=== PATIENT | male | born 1985 | race Caucasian/White ===

== ENCOUNTER → 2017-11-06 | Outpatient (CLI) | payer BC ==
--- NOTE | 2017-11-06 13:14 | US ---
EXAMINATION TYPE: US venous doppler duplex LE RT DATE OF EXAM: 11/06/2017 12:57 PM COMPARISON: NONE CLINICAL HISTORY: L03.115 CELLULITIS OF R LOWER LIMB. SIDE PERFORMED: Right TECHNIQUE: The lower extremity deep venous system is examined utilizing real time linear array sonog cristino with graded compression, doppler sonography and color-flow sonography. VESSELS IMAGED: External Iliac Vein (EIV) Common Femoral Vein Deep Femoral Vein Greater Saphenous Vein * Femoral Vein Popliteal Vein Small Saphenous Vein * Proximal Calf Veins (* superficial vessels) Morbidly obese patient. Right Leg: Negative for DVT Grayscale, color doppler, spectral doppler imaging performed of the deep veins of the lower extremiti es. There is normal flow, compressibility, vascular waveforms. IMPRESSION: No sonographic evidence of deep venous thrombosis within the right lower extremity.
== END | disposition home or self-care (01) ==
LOC: RADUSWWP 12:05
PROVIDERS: ATTEND Family Medicine
DX: L03.115 Cellulitis of right lower limb (principal)

== ENCOUNTER → 2020-05-07 | Outpatient (CLI) | payer BC ==
--- NOTE | 2020-05-07 18:01 | P.HPBAR ---
Bariatric H&P - History & Physicial H&P Date: 05/07/20 History & Physicial: Visit/CC: Initial Visit Patient initial contact: Initial weight: 188.468 kg Initial weight in pounds: 415.50 Height: 6 ft 4 in Initial BMI: 50.5 Last weight: Current weight: 188.468 kg Current weight in pounds: 415.50 Current BMI: 50.5 [place] body weight (based on NIH guidelines): 91.626 kg Excess body weight loss: 0.0% The patient is a 35 year-old M who presents for Bariatric Assessment. Patient seen today in the bariatric clinic as a new bariatric patient. Patient is interested in sleeve gastrectomy. Patient suffers from diabetes, hypertension, GERD, sleep apnea. Patient does not use a CPAP machine. BMI 50.5. Denies tobacco use. No history of DVT or dysphagia. No abdominal surgeries. Review of Systems The patient denies any acute changes in vision or hearing, no dysphagia or odynophagia, no chest pain or shortness of breath, no dysuria or hematuria, no headache, no runny nose, no rectal bleeding or melena, no unexplained weight loss Past Medical History Past Medical History: Diabetes Mellitus, Hypertension History of Any Multi-Drug Resistant Organisms: None Reported Past Surgical History: Orthopedic Surgery Additional Past Surgical History / Comment(s): right leg fracture pins and plate Past Anesthesia/Blood Transfusion Reactions: No Reported Reaction Past Psychological History: No Psychological Hx Reported Smoking Status: Former smoker Past Alcohol Use History: None Reported Additional Past Alcohol Use History / Comment(s): quit 2015 Past Drug Use History: None Reported Surgical - Exam Vital Signs Temp Pulse Resp BP 98.9 F 103 H 16 153/83 05/07/20 14:25 05/07/20 14:25 05/07/20 14:25 05/07/20 14:25 Physical exam: General: Well-developed, well-nourished HEENT: Normocephalic, sclerae nonicteric Abdomen: Nontender, nondistended Extremities: No edema Neuro: Alert and oriented Bariatric Assessment & Plan (1) Morbid obesity with BMI of 50.0-59.9, adult Narrative/Plan: Both surgical and nonoperative weight loss methods discussed with the patient. Risks and benefits of both gastric bypass and sleeve gastrectomy discussed in detail as well. Patient remains interested in sleeve gastrectomy at this time. Patient and I did discuss the increased expected weight loss with bypass over sleeve gastrectomy. He will continue to consider his options. We'll proceed with upper endoscopy in the near future. Will plan follow-up back in the bariatric center after upper endoscopy performed. Status: Acute Bariatric Checklist Checklist: Plan: Checklist: EGD: 1. Hiatal hernia: 2. H. Pylori: HgbA1c: Vitamin D: Smoking: Former smoker Primary care physician referral: [facility] Psychiatry clearance: Cardiology clearance: Sleep study: Diet journal: VTE risk score: VTE risk level: Rehab needs at discharge:
[2020-05-08 10:15] VITALS: BP 153/83; PULSE 103; RESP 16; TEMP 98.9; BMI 50.5
== END | disposition home or self-care (01) ==
LOC: BARWHC3 13:58
PROVIDERS: ATTEND Surgery
DX: E66.01 Morbid (severe) obesity due to excess calories (principal); Z68.43 Body mass index [BMI] 50.0-59.9, adult; Z87.891 Personal history of nicotine dependence
CPT/HCPCS: 99211

== ENCOUNTER → 2020-06-01 | Outpatient (CLI) | payer BC ==
[2020-06-01 11:34] VITALS: BMI 50.1
== END | disposition home or self-care (01) ==
LOC: BARWHC3 09:14
PROVIDERS: ATTEND Surgery
DX: E66.01 Morbid (severe) obesity due to excess calories (principal); Z68.41 Body mass index [BMI] 40.0-44.9, adult; Z71.3 Dietary counseling and surveillance
CPT/HCPCS: 97804

== ENCOUNTER → 2020-06-02 | Day surgery (SDC) | payer BC ==
[2020-05-29 10:36] VITALS: BMI 51.7
[~2020-06-02] MED LIST: GLYCOPYRROLATE 0.2 MG/ML 2 ML VIAL ONE; KETAMINE 10 MG/ML 20 ML VIAL ONE; LACTATED RINGERS 1,000 ML IV SCH; LIDOCAINE 1% (10MG/ML) FOR IV START INTRADERMA ONE; LIDOCAINE 1% INJ 10MG/ML (20 ML MDV) ONE; PROPOFOL 10 MG/ML 20 ML VIAL IV ONE
[2020-06-02 08:05] VITALS: RESP 20; TEMP 97.4
[2020-06-02 08:28] LABS: Glucose,Whole Blood 207 mg/dL (75-99)
--- NOTE | 2020-06-02 08:36 | P.GSHP ---
History of Present Illness H&P Date: 06/02/20 Chief Complaint: GERD Patient here today for upper endoscopy. Patient is interested in sleeve gastrectomy. Patient with history of diabetes, hypertension, sleep apnea, GERD symptoms. No dysphagia. Past Medical History Past Medical History: Diabetes Mellitus, Hypertension Additional Past Medical History / Comment(s): ASTHMA (CHILD), SEVERE SLEEP APNEA (NO MACHINE), PSORIASIS. History of Any Multi-Drug Resistant Organisms: None Reported Past Surgical History: Orthopedic Surgery Additional Past Surgical History / Comment(s): right leg fracture pins and plate, Knee Arthroscopy Past Anesthesia/Blood Transfusion Reactions: No Reported Reaction Past Psychological History: No Psychological Hx Reported Smoking Status: Former smoker Past Alcohol Use History: Occasional Additional Past Alcohol Use History / Comment(s): smoked for 1/2 to 1 year- quit 8-10 years ago. Past Drug Use History: None Reported - Past Family History Mother Family Medical History: No Reported History Medications and Allergies Home Medications Medication Instructions Recorded Confirmed Type lisinopriL [Zestril] 10 mg PO DAILY 05/07/20 06/02/20 History metFORMIN HCL [Glucophage] 1,000 mg PO DAILY 05/07/20 06/02/20 History Allergies Allergy/AdvReac Type Severity Reaction Status Date / Time No Known Allergies Allergy Verified 05/29/20 10:19 Surgical - Exam Vital Signs Temp Pulse Resp BP Pulse Ox 97.4 F L 80 20 138/65 94 L 06/02/20 08:02 06/02/20 08:02 06/02/20 08:02 06/02/20 08:02 06/02/20 08:02 Physical exam: General: Well-developed, well-nourished HEENT: Normocephalic, sclerae nonicteric Abdomen: Nontender, nondistended Extremities: No edema Neuro: Alert and oriented Results - Labs Abnormal Lab Results - Last 24 Hours (Table) 06/02/20 Range/Units 08:22 POC Glucose (mg/dL) 207 H (75-99) mg/dL Assessment and Plan (1) GERD (gastroesophageal reflux disease) Narrative/Plan: Will proceed with upper endoscopy at this time. Current Visit: Yes Status: Acute Code(s): K21.9 - GASTRO-ESOPHAGEAL REFLUX DISEASE WITHOUT ESOPHAGITIS SNOMED Code(s): 862635132
--- NOTE | 2020-06-02 08:53 | P.PCN ---
Date of Procedure: 06/02/20 Procedure(s) Performed: Preoperative Dx: GERD, presurgical Postoperative Dx: Mild gastritis Procedure: EGD with Bx Anesthesia: Sedation Endoscopist: Dr. Ceron Specimens: Antrum Endoscopic Procedure: The patient was on the endoscopy table in the left decubitus position. The Olympus gastroscope was inserted into the oropharynx and passed under direct visualization to the region of the third portion of the duodenum. From that point the scope was slowly withdrawn inspecting all surfaces carefully. There were no neoplastic inflammatory or polypoid lesions throughout the duodenum. The pylorus was widely patent. The stomach was carefully inspected. There was mild gastritis present. A biopsy of the antrum took place to rule out H. pylori. Retroflexion revealed a normal hiatus. The esophagus was then carefully examined. There were no neoplastic inflammatory or polypoid lesions throughout the visualized esophagus. The patient was then taken to the recovery room in stable condition per anesthesia guidelines. Recommendations: Await biopsy results. Follow-up bariatric clinic.
[2020-06-02 09:22] VITALS: BP 138/85; PULSE 72
[2020-06-02 09:41] LABS: HCT 46.9 % (39.0-53.0); HGB 15.6 gm/dL (13.0-17.5); MCHC 33.1 g/dL (31.0-37.0); MCV 87.6 fL (80.0-100.0); Mean Platelet Volume 8.5; Platelet Count 202 k/uL (150-450); RBC 5.35 m/uL (4.30-5.90); RDW 12.7 % (11.5-15.5); WBC 6.1 k/uL (3.8-10.6)
[2020-06-02 16:59] LABS: Hemoglobin A1C 8.7 % (4.0-6.0)
[2020-06-02 17:03] LABS: African American GFR (CKD) 142.7 (60.0-200.0); Albumin 4.1 g/dL (3.80-4.90); Albumin/Globulin Ratio 1.64 (1.60-3.17); Anion Gap 9.5 mmol/L (4.00-12.00); BUN/Creat Ratio 18.57 Ratio (12.00-20.00); Calcium 9.1 mg/dL (8.7-10.3); Carbon Dioxide 26.5 mmol/L (21.6-31.8); Globulin 2.5 g/dL (1.6-3.3); Non-African American GFR(CKD) 123.1 (60.0-200.0); Potassium 4.4 mmol/L (3.5-5.5); Total Bilirubin 0.6 mg/dL (0.2-1.2); Total Protein 6.6 g/dL (6.2-8.2)
[2020-06-02 17:14] LABS: Folate, Serum 17.4 ng/mL
== END ==
LOC: ORWHC2ENDO 07:38
PROVIDERS: ATTEND Surgery
DX: K29.50 Unspecified chronic gastritis without bleeding (principal); K21.9 Gastro-esophageal reflux disease without esophagitis; I10 Essential (primary) hypertension; J45.909 Unspecified asthma, uncomplicated; E11.9 Type 2 diabetes mellitus without complications; L40.9 Psoriasis, unspecified; G47.33 Obstructive sleep apnea (adult) (pediatric); E66.01 Morbid (severe) obesity due to excess calories; Z79.84 Long term (current) use of oral hypoglycemic drugs; Z79.899 Other long term (current) drug therapy; Z98.890 Other specified postprocedural states; Z87.891 Personal history of nicotine dependence; Z68.43 Body mass index [BMI] 50.0-59.9, adult
CPT/HCPCS: 88305; 43239; J2001; J2704

== ENCOUNTER → 2020-06-09 | Outpatient (CLI) | payer BC ==
[2020-06-09 13:57] VITALS: BP 142/75; PULSE 97; RESP 16; TEMP 98.3; BMI 50.1
--- NOTE | 2020-06-09 14:57 | P.BASOAP ---
Subjective Progress Note Date: 06/09/20 Principal diagnosis: Morbid obesity 35-year-old male known to our bariatric clinic. He underwent EGD 06/02. Found to have mild gastritis at that time. Patient with history of diabetes, hypertension, GERD, sleep apnea. Remains interested in sleeve gastrectomy. No other changes to his history and physical since his first encounter. Objective - Vital Signs Vital signs: Vital Signs Temp 98.3 F 06/09/20 13:54 Pulse 97 06/09/20 13:54 Resp 16 06/09/20 13:54 BP 142/75 06/09/20 13:54 Pulse Ox Intake & Output 06/08/20 06/09/20 06/09/20 18:59 06:59 18:59 Weight 186.88 kg - Exam Abdomen: Soft, nontender, nondistended Assessment/Plan (1) Morbid obesity with BMI of 50.0-59.9, adult Narrative/Plan: Options again discussed with the patient. Remains interested in sleeve gastrectomy. We'll schedule for sleeve gastrectomy in the next 1-2 months. The surgical consent form was discussed in detail. The risks of bleeding, infection, stenosis, stricture, leak, abscess, fistula formation, peritonitis, poor weight loss, reflux, vomiting, conversion to an open procedure, aborting sleeve gastrectomy, [place], PE, DVT, and were discussed. The patient understands and wishes to proceed. Plan: Date: 06/09/20 Initial Weight: 188.468 kg Initial BMI: 50.5 Current Weight: 186.88 kg Current BMI: 50.1 Type of Surgery: Total Volume in Band: Previous Volume: Volume Removed: Volume Added: Band Size:
== END | disposition home or self-care (01) ==
LOC: BARWHC3 13:46
PROVIDERS: ATTEND Surgery
DX: E66.01 Morbid (severe) obesity due to excess calories (principal); Z68.43 Body mass index [BMI] 50.0-59.9, adult
CPT/HCPCS: 99211

== ENCOUNTER 2020-07-03 08:34 | Inpatient (IN) | payer BC ==
[~2020-07-03 08:34] MED LIST changes: -GLYCOPYRROLATE 0.2 MG/ML 2 ML VIAL ONE; -KETAMINE 10 MG/ML 20 ML VIAL ONE; -LACTATED RINGERS 1,000 ML IV SCH; -LIDOCAINE 1% (10MG/ML) FOR IV START INTRADERMA ONE; +LIDOCAINE 1% (10MG/ML) FOR IV START INTRADERMA PRN; -LIDOCAINE 1% INJ 10MG/ML (20 ML MDV) ONE; +MIDAZOLAM 2 MG/2 ML VIAL IV PRN; -PROPOFOL 10 MG/ML 20 ML VIAL IV ONE; +ceFAZolin 3 GM in SODIUM CHLORIDE 0.9% 100 ML IVPB ONE; +fentaNYL (PF) 50 MCG/ML 2 ML AMP IVP PRN
[2020-07-03] MEDS: LACTATED RINGERS 1,000 ML IV SCH (11:47)
[2020-07-03] MEDS: ONDANSETRON 4 MG/2 ML VIAL IVP ONE ×2 (11:48→17:26)
[2020-07-03] MEDS: DEXAMETHASONE SOD PHOSPHATE 10 MG/ML 1 ML VIAL IV ONE ×2 (11:48→17:26)
[2020-07-03 11:49] LABS: Glucose,Whole Blood 106 mg/dL (75-99)
[2020-07-03] MEDS ORDERED: PANTOPRAZOLE 40 MG/10 ML VIAL IV STA (12:10)
[2020-07-03] MEDS ORDERED: ENOXAPARIN 40 MG/0.4 ML SYRINGE SQ STA (12:10)
[2020-07-03] MEDS ORDERED: CHLORHEXIDINE GLUCONATE 15 ML CUP MUCOUS MEM ONE (12:10)
--- NOTE | 2020-07-03 12:13 | P.GSHP ---
History of Present Illness H&P Date: 07/03/20 Chief Complaint: Morbid obesity 35-year-old male first seen in the office in April. The patient has complaints of morbid obesity. States he has tried a variety of different weight loss methods over the years without success. Patient several from diabetes, hypertension, GERD, sleep apnea. He does not use his CPAP machine. No history of DVT or dysphagia in the past. Patient has been and remains interested in sleeve gastrectomy. Recent EGD showed mild gastritis. Past Medical History Past Medical History: Diabetes Mellitus, GERD/Reflux, Hypertension, Pneumonia, Skin Disorder, Sleep Apnea/CPAP/BIPAP Additional Past Medical History / Comment(s): ASTHMA (CHILD), SEVERE SLEEP APNEA (NO MACHINE), PSORIASIS. History of Any Multi-Drug Resistant Organisms: None Reported Past Surgical History: Orthopedic Surgery Additional Past Surgical History / Comment(s): right leg fx with screws,pins and plate, left knee arthreoscopy Past Anesthesia/Blood Transfusion Reactions: No Reported Reaction Smoking Status: Former smoker - Past Family History Mother Family Medical History: No Reported History Medications and Allergies Home Medications Medication Instructions Recorded Confirmed Type lisinopriL [Zestril] 10 mg PO DAILY 05/07/20 07/03/20 History metFORMIN HCL [Glucophage] 1,000 mg PO DAILY 05/07/20 07/03/20 History Allergies Allergy/AdvReac Type Severity Reaction Status Date / Time No Known Allergies Allergy Verified 07/03/20 11:31 Surgical - Exam Vital Signs Temp Pulse Resp BP Pulse Ox 98.3 F 76 20 143/76 94 L 07/03/20 11:36 07/03/20 11:36 07/03/20 11:36 07/03/20 11:36 07/03/20 11:36 Physical exam: General: Well-developed, well-nourished HEENT: Normocephalic, sclerae nonicteric Abdomen: Nontender, nondistended Extremities: No edema Neuro: Alert and oriented Results - Labs Abnormal Lab Results - Last 24 Hours (Table) 07/03/20 Range/Units 11:42 POC Glucose (mg/dL) 106 H (75-99) mg/dL Assessment and Plan (1) Morbid obesity with BMI of 50.0-59.9, adult Narrative/Plan: Will proceed with laparoscopic sleeve gastrectomy at this time. The risks of bleeding, infection, stenosis, stricture, leak, abscess, fistula formation, peritonitis, poor weight loss, reflux, vomiting, conversion to an open procedure, aborting sleeve gastrectomy, [place], PE, DVT, and were discussed. The patient understands and wishes to proceed. Current Visit: No Status: Acute Code(s): E66.01 - MORBID (SEVERE) OBESITY DUE TO EXCESS CALORIES; Z68.43 - BODY MASS INDEX (BMI) 50.0-59.9, ADULT SNOMED Code(s): 364929195
[2020-07-03] MEDS ORDERED: ONDANSETRON 4 MG/2 ML VIAL ONE (14:00)
[2020-07-03] MEDS ORDERED: fentaNYL (PF) 50 MCG/ML 2 ML AMP ONE (14:00)
[2020-07-03] MEDS ORDERED: LIDOCAINE 1% INJ 10MG/ML (20 ML MDV) ONE (14:00)
[2020-07-03] MEDS ORDERED: NEOSTIGMINE 1 MG/ML 10 ML VIAL ONE (14:00)
[2020-07-03] MEDS ORDERED: MIDAZOLAM 2 MG/2 ML VIAL ONE (14:00)
[2020-07-03] MEDS ORDERED: ROCURONIUM BROMIDE 10 MG/ML 5 ML VIAL IV ONE (14:00)
[2020-07-03] MEDS ORDERED: SUCCINYLCHOLINE CHLORIDE VIAL 200 MG/10 ML VIAL IV ONE (14:00)
[2020-07-03] MEDS ORDERED: PROPOFOL 10 MG/ML 20 ML VIAL IV ONE (14:00)
[2020-07-03] MEDS ORDERED: GLYCOPYRROLATE 0.2 MG/ML 2 ML VIAL ONE (14:00)
[2020-07-03] MEDS ORDERED: BUPIVACAINE (PF) 0.25% 30 ML VIAL SQ ONE ×2 (14:32→14:38)
[2020-07-03] MEDS ORDERED: LACTATED RINGERS 1,000 ML IV ONE ×2 (14:38→17:03)
[2020-07-03] MEDS ORDERED: diphenhydrAMINE 50 MG/ML 1 ML VIAL IVP PRN (16:00)
[2020-07-03] MEDS ORDERED: HYOSCYAMINE ORAL DROPS 1.875 MG/15 ML BOTTLE PO PRN (16:00)
[2020-07-03] MEDS ORDERED: NALOXONE 0.4 MG/ML 1 ML VIAL IV PRN (16:00)
[2020-07-03] MEDS ORDERED: ONDANSETRON 4 MG/2 ML VIAL IVP PRN (16:00)
--- NOTE | 2020-07-03 16:08 | P.OP ---
Date of Procedure: 07/03/20 Procedure(s) Performed: PREOPERATIVE DIAGNOSIS: Morbid obesity, GERD, hypertension, sleep apnea, diabetes POSTOPERATIVE DIAGNOSIS: Same PROCEDURE: Laparoscopic sleeve gastrectomy SURGEON: Osmany EBL: Minimal ANESTHESIA: General COMPLICATIONS: None OPERATIVE PROCEDURE: Patient was placed in the operating table in the supine position. She was placed under general anesthesia at that time. The abdomen was prepped and draped in sterile fashion after the patient was placed in lithotomy. A 5 mm optical trocar was used to enter the abdominal cavity in the left upper quadrant. Insufflation took place to 15 millimeters mercury. An additional right subxiphoid 5 mm trocar was then placed under direct visua lization and then removed. 2 additional 5 mm trochars were placed in the right upper quadrant and left upper quadrant under direct visualization and a 15 mm trocar in the supraumbilical location. The liver was retracted using a medium Vanda liver retractor through the right subxiphoid trocar site. The hiatus was inspected. The patient had no visible hiatal hernia At that point I moved to the mid aspect of the greater curvature the stomach. The short gastric vasculature was divided using a LigaSure device proximally. I then switched and divided the short gastrics distally to a 3-4 cm from the pylorus. The dissection took place up to the left diaphragmatic crura at that point. The posterior short gastrics were likewise divided using the LigaSure device. Once the stomach was fully mobilized the blunt tipped 40-Tunisian bougie dilator was advanced into the stomach and advanced all the way to the prepyloric location. A black echelon 60 stapler with seen guard was utilized and fired tangentially across the antrum taking care to avoid narrowing at the incisura angularis. A second black echelon stapler with seam guard was then utilized. Subsequent firings of the stapler took place. A total of 4 green echelon 60 staplers with seam guard took place proximally staying on the outer edge of our dilator. Once we reached the most proximal portion of the stomach a single firing of the gold echelon 60 stapler without seen guard took place. The oral gastric tube was reinserted. The stomach was insufflated with approximately 100 mL of methylene blue. No evidence of leak or obstruction was seen. The distal aspect of the sleeve was then reapproximated to the gastrosplenic and gastrocolic ligament using a short running 2-0 strata fix suture. This was done to prevent kinking or twisting of the sleeve. Tisseel fibrin glue was used along the length of the staple line at that time. The stomach remnant was removed from the 15 mm trocar site without difficulty. The fascia at the 15 more site was closed using interrupted 0 Vicryl sutures with the laparoscopic suture passer and Francisco Javier Maegan technique. The insufflation was evacuated. The skin at all 5 incisions were closed using 4-0 Monocryl sutures. Skin glue was then applied. DISPOSITION: Stable to recovery room
[2020-07-03] MEDS: HYDROmorphone 0.5 MG/0.5 ML SYRINGE IVP PRN ×4 (16:24→17:05)
[2020-07-03] MEDS: ALBUTEROL NEBULIZED 2.5 MG/3 ML INHALATION SCH ×2 (16:27→19:20)
[2020-07-03] MEDS: ACETAMINOPHEN IV (For NPO) 1,000 MG in EMPTY BAG 1 BAG IVPB ONE ×2 (17:05→17:25)
[2020-07-03 17:10] LABS: Glucose,Whole Blood 133 mg/dL (75-99)
[2020-07-03] MEDS: 0.9% NACL WITH KCL 20 MEQ/L 1,000 ML IV SCH (19:45)
[2020-07-03] MEDS: HYDROmorphone 1 MG/ML 1 ML SYRINGE IVP PRN (20:30)
[2020-07-03] MEDS: SIMETHICONE 40 MG/0.6 ML DROPS 2,000 MG/30 ML BOTTLE PO PRN (20:44)
[2020-07-04] MEDS: HYDROmorphone 1 MG/ML 1 ML SYRINGE IVP PRN ×5 (01:31→21:40)
[2020-07-04] MEDS: 0.9% NACL WITH KCL 20 MEQ/L 1,000 ML IV SCH ×2 (01:34→05:25)
[2020-07-04] MEDS ORDERED: METOCLOPRAMIDE 5 MG/ML 2 ML VIAL IVP PRN (01:38)
[2020-07-04] MEDS ORDERED: ONDANSETRON 4 MG/2 ML VIAL IVP PRN (01:38)
[2020-07-04] MEDS: LACTATED RINGERS 1,000 ML IV SCH (05:25)
[2020-07-04 07:27] LABS: Basophils % (A) 0 %; Eosinophils % (A) 0 %; HCT 46.3 % (39.0-53.0); HGB 15.3 gm/dL (13.0-17.5); Lymphocytes # (A) 1.6 k/uL (1.0-4.8); Lymphocytes % (A) 15 %; MCH 29.1 pg (25.0-35.0); MCHC 33.1 g/dL (31.0-37.0); MCV 88.1 fL (80.0-100.0); Mean Platelet Volume 8.3; Monocytes # (A) 0.6 k/uL (0-1.0); Monocytes % (A) 6 %; Neutrophils # (A) 8.5 k/uL (1.3-7.7); Neutrophils % (A) 78 %; Platelet Count 208 k/uL (150-450); RBC 5.26 m/uL (4.30-5.90)
[2020-07-04 07:29] LABS: Glucose,Whole Blood 120 mg/dL (75-99)
[2020-07-04] MEDS: PANTOPRAZOLE 40 MG/10 ML VIAL IV SCH (07:34)
[2020-07-04] MEDS: ENOXAPARIN 40 MG/0.4 ML SYRINGE SQ SCH ×2 (07:34→21:42)
[2020-07-04 07:41] LABS: African American GFR (CKD) >90 (>60 ml/min/1.73 sqM); Anion Gap 8 mmol/L; Blood Urea Nitrogen 8 mg/dL (9-20); Calcium 8.7 mg/dL (8.4-10.2); Carbon Dioxide 28 mmol/L (22-30); Chloride 101 mmol/L (98-107); Magnesium 1.9 mg/dL (1.6-2.3); Non-African American GFR(CKD) >90 (>60 ml/min/1.73 sqM); Phosphorus 3.9 mg/dL (2.5-4.5); Potassium 4.1 mmol/L (3.5-5.1); Sodium 137 mmol/L (137-145)
[2020-07-04] MEDS: 1: MVI, ADULT NO.4 WITH VIT K 10 ML, THIAMINE 100 MG, FOLIC ACID 1 MG, POTASSIUM CHLORID IV SCH ×12 (08:36→14:52)
--- NOTE | 2020-07-04 08:40 | FL ---
SINGLE CONTRAST UPPER GI EXAMINATION: CLINICAL HISTORY: 35-year-old male postop bariatric surgery, sleeve gastrectomy. TECHNIQUE: Single contrast exam performed with 50 ml Isovue-370 contrast. Total fluoroscopy time: 51 seconds. Total images: 21. FINDINGS: The patient swallowed oral contrast without difficulty or delay. Esophageal peristalsis and motility are within normal limits. There is prompt passage of contrast from esophagus into the stomach. There is postoperative changes of sleeve gastrectomy with satisfactory passage across this lesion and subs equently, into the duodenum. Normal positioning of the surgerized stomach. There is no evidence of co ntrast extravasation to suggest leak. No postoperative free air. IMPRESSION: No evidence of leak or obstruction status post sleeve gastrectomy.
[2020-07-04] MEDS: ALBUTEROL NEBULIZED 2.5 MG/3 ML INHALATION SCH ×4 (08:52→21:02)
--- NOTE | 2020-07-04 09:37 | P.PN ---
Subjective Progress Note Date: 07/04/20 Principal diagnosis: Morbid obesity Patient doing well today. Mild nausea. Pain is well-controlled. Upper GI shows no evidence of leak or obstruction. White blood cell count 11, hemoglobin 15.3. Objective - Vital Signs Vital signs: Vital Signs Temp 98.2 F 07/04/20 07:09 Pulse 64 07/04/20 09:04 Resp 18 07/04/20 07:09 BP 159/98 07/04/20 07:09 Pulse Ox 95 07/04/20 07:09 Intake & Output 07/03/20 07/04/20 07/04/20 18:59 06:59 18:59 Intake Total 2150 Output Total 10 725 Balance 2140 -725 Weight 178.6 kg Intake: IV 2150 Output: Urine 725 Estimated Blood Loss 10 Other: # Voids 1 - Exam Abdomen: Soft, nondistended, mild tenderness, incisions clean and dry - Labs CBC & Chem 7: 07/04/20 07:11 07/04/20 07:11 Labs: Abnormal Lab Results - Last 24 Hours (Table) 07/03/20 07/03/20 07/04/20 Range/Units 11:42 17:05 07:08 WBC (3.8-10.6) k/uL Neutrophils # (1.3-7.7) k/uL BUN (9-20) mg/dL POC Glucose (mg/dL) 106 H 133 H 120 H (75-99) mg/dL 07/04/20 07/04/20 Range/Units 07:11 07:11 WBC 11.0 H (3.8-10.6) k/uL Neutrophils # 8.5 H (1.3-7.7) k/uL BUN 8 L (9-20) mg/dL POC Glucose (mg/dL) (75-99) mg/dL Assessment and Plan (1) Morbid obesity with BMI of 50.0-59.9, adult Narrative/Plan: Patient doing well at this time. Increase activity. Begin liquid diet. May shower. Current Visit: No Status: Acute Code(s): E66.01 - MORBID (SEVERE) OBESITY DUE TO EXCESS CALORIES; Z68.43 - BODY MASS INDEX (BMI) 50.0-59.9, ADULT SNOMED Code(s): 421844393
[2020-07-04 11:38] LABS: Glucose,Whole Blood 133 mg/dL (75-99)
[2020-07-04 12:01] VITALS: BMI 47.9
[2020-07-04] MEDS ORDERED: hydrALAZINE HCL 20 MG/ML 1 ML VIAL IM PRN (12:01)
[2020-07-04] MEDS ORDERED: hydrALAZINE HCL 20 MG/ML 1 ML VIAL IVP PRN (12:24)
[2020-07-04] MEDS: KETOROLAC 15 MG/ML 1 ML VIAL IVP SCH ×2 (12:28→18:12)
[2020-07-04] MEDS: INSULIN ASPART (NovoLOG) 100 UNIT/ML VIAL SQ SCH ×3 (12:56→21:51)
[2020-07-04 17:04] LABS: Glucose,Whole Blood 113 mg/dL (75-99)
[2020-07-04 20:28] LABS: Glucose,Whole Blood 105 mg/dL (75-99)
[2020-07-04] MEDS: SIMETHICONE 40 MG/0.6 ML DROPS 2,000 MG/30 ML BOTTLE PO PRN (21:42)
[2020-07-05] MEDS: KETOROLAC 15 MG/ML 1 ML VIAL IVP SCH ×3 (00:13→11:44)
[2020-07-05] MEDS: 1: MVI, ADULT NO.4 WITH VIT K 10 ML, THIAMINE 100 MG, FOLIC ACID 1 MG, POTASSIUM CHLORID IV SCH ×6 (03:00)
[2020-07-05 07:14] LABS: Glucose,Whole Blood 83 mg/dL (75-99)
[2020-07-05] MEDS: ENOXAPARIN 40 MG/0.4 ML SYRINGE SQ SCH (07:31)
[2020-07-05] MEDS: INSULIN ASPART (NovoLOG) 100 UNIT/ML VIAL SQ SCH (07:31)
[2020-07-05] MEDS: PANTOPRAZOLE 40 MG/10 ML VIAL IV SCH (07:32)
[2020-07-05] MEDS: ALBUTEROL NEBULIZED 2.5 MG/3 ML INHALATION SCH ×2 (07:52→12:07)
[2020-07-05 07:59] LABS: Basophils % (A) 1 %; Eosinophils # (A) 0.2 k/uL (0-0.7); Eosinophils % (A) 3 %; HCT 41.6 % (39.0-53.0); HGB 13.6 gm/dL (13.0-17.5); Lymphocytes # (A) 1.9 k/uL (1.0-4.8); Lymphocytes % (A) 32 %; MCH 29.3 pg (25.0-35.0); MCHC 32.8 g/dL (31.0-37.0); MCV 89.2 fL (80.0-100.0); Mean Platelet Volume 8.4; Monocytes # (A) 0.5 k/uL (0-1.0); Monocytes % (A) 8 %; Neutrophils % (A) 53 %; Platelet Count 167 k/uL (150-450); RBC 4.66 m/uL (4.30-5.90); RDW 13.1 % (11.5-15.5); WBC 5.7 k/uL (3.8-10.6)
[2020-07-05 08:06] LABS: African American GFR (CKD) >90 (>60 ml/min/1.73 sqM); Anion Gap 6 mmol/L; Blood Urea Nitrogen 11 mg/dL (9-20); Calcium 8.3 mg/dL (8.4-10.2); Carbon Dioxide 28 mmol/L (22-30); Chloride 102 mmol/L (98-107); Glucose 85 mg/dL (74-99); Non-African American GFR(CKD) >90 (>60 ml/min/1.73 sqM); Potassium 4.4 mmol/L (3.5-5.1); Sodium 136 mmol/L (137-145)
[2020-07-05 08:37] VITALS: BP 129/75; PULSE 62; RESP 16; TEMP 97.9
--- NOTE | 2020-07-05 09:59 | P.DS ---
Providers Date of admission: 07/03/20 11:18 Expected date of discharge: 07/05/20 Attending physician: Eugene Ceron Consults: 07/03/20 16:00 Consult Physician Routine Consulting Provider: Allie Posadas Consult Reason/Comments: Medical management Do you want consulting provider notified?: Yes Primary care physician: Eneida Marley - Discharge Diagnosis(es) (1) Morbid obesity with BMI of 50.0-59.9, adult Patient admitted for elective sleeve gastrectomy. Patient has done well postoperatively. Tolerating clear liquids. Would like to go home today. Incisions are clean and dry. We'll discharge. Follow-up one week. Current Visit: No Status: Acute Plan - Discharge Summary Discharge Rx Participant: No New Discharge Prescriptions: New Simethicone 40 mg/0.6 ml Drops [Mylicon Drops] 40 mg PO PCHS PRN #30 ml PRN Reason: Gas Hydrocodone/Acetaminophen [[place] 5-325] 1 tab PO Q6HR PRN 3 Days #10 tab PRN Reason: Pain Omeprazole [PriLOSEC] 40 mg PO DAILY #90 capsule. Ondansetron Odt [Zofran Odt] 4 mg PO Q8HR PRN #9 tab PRN Reason: Nausea No Action lisinopriL [Zestril] 10 mg PO DAILY metFORMIN HCL [Glucophage] 1,000 mg PO DAILY Discharge Medication List lisinopriL [Zestril] 10 mg PO DAILY 05/07/20 [History] metFORMIN HCL [Glucophage] 1,000 mg PO DAILY 05/07/20 [History] Hydrocodone/Acetaminophen [[place] 5-325] 1 tab PO Q6HR PRN 3 Days #10 tab 07/05/20 [Rx] Omeprazole [PriLOSEC] 40 mg PO DAILY #90 capsule. 07/05/20 [Rx] Ondansetron Odt [Zofran Odt] 4 mg PO Q8HR PRN #9 tab 07/05/20 [Rx] Simethicone 40 mg/0.6 ml Drops [Mylicon Drops] 40 mg PO PCHS PRN #30 ml 07/05/20 [Rx] [facility] [place] [facility] Patient Instructions/Handouts: Nutrition after Bariatric Surgery (DC), Laparoscopic Sleeve Gastrectomy (DC)
[2020-07-05] MEDS: HYDROmorphone 1 MG/ML 1 ML SYRINGE IVP PRN (11:28)
[2020-07-05 11:41] LABS: Glucose,Whole Blood 107 mg/dL (75-99)
--- NOTE | 2020-07-05 12:08 | P.CONS ---
History of Present Illness - Reason for Consult Consult date: 07/04/20 Medical management - Chief Complaint Morbid obesity - History of Present Illness 35-year-old male patient with history of diabetes, hypertension, GERD and sleep apnea along with morbid obesity is admitted to the hospital for sleeve gastrectomy; patient had EGD done which showed mild gastritis; patient is status post laparoscopic sleeve gastrectomy and is POD #1; medical team is consulted for management of hypertension and diabetes Review of Systems REVIEW OF SYSTEMS: CONSTITUTIONAL: No fever, no malaise, no fatigue. HEENT: No recent visual problems or hearing problems. Denied any sore throat. CARDIOVASCULAR: No chest pain, orthopnea, PND, no palpitations, no syncope. PULMONARY: No shortness of breath, no cough, no hemoptysis. GASTROINTESTINAL: No diarrhea, no nausea, no vomiting, no abdominal pain. NEUROLOGICAL: No headaches, no weakness, no numbness. HEMATOLOGICAL: Denies any bleeding or petechiae. GENITOURINARY: Denies any burning micturition, frequency, or urgency. MUSCULOSKELETAL/RHEUMATOLOGICAL: Denies any joint pain, swelling, or any muscle pain. ENDOCRINE: Denies any polyuria or polydipsia. The rest of the 14-point review of systems is negative. Past Medical History Past Medical History: Diabetes Mellitus, GERD/Reflux, Hypertension, Pneumonia, Skin Disorder, Sleep Apnea/CPAP/BIPAP Additional Past Medical History / Comment(s): ASTHMA (CHILD), SEVERE SLEEP APNEA (NO MACHINE), PSORIASIS. History of Any Multi-Drug Resistant Organisms: None Reported Past Surgical History: Orthopedic Surgery Additional Past Surgical History / Comment(s): right leg fx with screws,pins and plate, left knee arthreoscopy Past Anesthesia/Blood Transfusion Reactions: No Reported Reaction Past Psychological History: No Psychological Hx Reported Smoking Status: Former smoker Past Alcohol Use History: Occasional Additional Past Alcohol Use History / Comment(s): quit smoking 2012, smoked for 1 yr Past Drug Use History: None Reported - Past Family History Mother Family Medical History: No Reported History Medications and Allergies Home Medications Medication Instructions Recorded Confirmed Type lisinopriL [Zestril] 10 mg PO DAILY 05/07/20 07/03/20 History metFORMIN HCL [Glucophage] 1,000 mg PO DAILY 05/07/20 07/03/20 History Hydrocodone/Acetaminophen [[place] 1 tab PO Q6HR PRN 3 Days #10 tab 07/05/20 Rx 5-325] Omeprazole [PriLOSEC] 40 mg PO DAILY #90 capsule. 07/05/20 Rx Ondansetron Odt [Zofran Odt] 4 mg PO Q8HR PRN #9 tab 07/05/20 Rx Simethicone 40 mg/0.6 ml Drops 40 mg PO PCHS PRN #30 ml 07/05/20 Rx [Mylicon Drops] Allergies Allergy/AdvReac Type Severity Reaction Status Date / Time No Known Allergies Allergy Verified 07/03/20 11:31 Physical Exam Vitals: Vital Signs Temp Pulse Pulse Resp BP Pulse Ox 07/04/20 09:04 64 07/04/20 08:52 64 07/04/20 07:09 98.2 F 60 18 159/98 95 07/04/20 01:19 98.0 F 68 145/82 98 07/03/20 19:51 83 164/84 94 L 07/03/20 19:35 85 147/88 93 L 07/03/20 19:32 84 16 07/03/20 19:25 94 L 07/03/20 19:20 82 75 18 144/79 98 07/03/20 19:05 78 145/74 93 L 07/03/20 18:40 73 149/74 94 L 07/03/20 18:25 75 145/85 93 L 07/03/20 18:10 85 144/87 90 L 07/03/20 17:55 78 142/82 92 L 07/03/20 17:41 89 136/80 89 L 07/03/20 17:39 98.0 F 68 156/77 91 L 07/03/20 17:15 71 16 164/70 100 07/03/20 16:58 69 16 172/91 100 07/03/20 16:43 71 16 169/83 100 07/03/20 16:28 67 16 170/86 100 07/03/20 16:13 97.3 F L 78 16 148/66 98 Intake and Output 07/03/20 07/04/20 07/04/20 22:59 06:59 14:59 Intake Total 450 1200 Output Total 735 Balance -285 1200 Intake: IV 450 1200 0.9% NaCl with KCl 20 Meq 1200 /l 1,000 ml @ 150 mls/hr IV .Q6H40M [facility] Rx#: [id number] Output: Urine 725 Estimated Blood Loss 10 Other: # Voids 1 Weight 178.6 kg 178.6 kg - Constitutional General appearance: Present: average body habitus, cooperative, no acute distress - EENT Eyes: Present: anicteric sclerae, EOMI, PERRLA, normal appearance ENT: Present: hearing grossly normal, normal oropharynx Ears: bilateral: normal - Neck Neck: Present: normal ROM. Absent: lymphadenopathy, rigidity, thyromegaly Carotids: negative: bruit present Thyroid: bilateral: normal size, negative: enlarged, nodule - Respiratory Respiratory: bilateral: CTA, negative: rales, rhonchi, wheezing - Cardiovascular Rhythm: regular Heart sounds: normal: S1, S2 Abnormal Heart Sounds: Absent: systolic murmur, diastolic murmur - Gastrointestinal General gastrointestinal: Present: normal bowel sounds, soft. Absent: distended, organomegaly, tenderness - Genitourinary Genitourinary Comment(s): deferred - Integumentary Integumentary: Present: normal turgor. Absent: jaundiced, rash, ulcer - Neurologic Neurologic: Present: CNII-XII intact. Absent: focal deficits - Musculoskeletal Musculoskeletal: Present: gait normal, strength equal bilaterally - Psychiatric Psychiatric: Present: A&O x's 3, appropriate affect, intact judgment & insight Results CBC & Chem 7: 07/05/20 07:12 07/05/20 07:12 Labs: Abnormal Lab Results - Last 24 Hours (Table) 07/03/20 07/04/20 07/04/20 Range/Units 17:05 07:08 07:11 WBC 11.0 H (3.8-10.6) k/uL Neutrophils # 8.5 H (1.3-7.7) k/uL BUN (9-20) mg/dL POC Glucose (mg/dL) 133 H 120 H (75-99) mg/dL 07/04/20 07/04/20 Range/Units 07:11 11:34 WBC (3.8-10.6) k/uL Neutrophils # (1.3-7.7) k/uL BUN 8 L (9-20) mg/dL POC Glucose (mg/dL) 133 H (75-99) mg/dL Assessment and Plan Assessment: 1. Sleeve gastrectomy morbid obesity; POD #1 - Your management 2. Diabetes mellitus; patient reports that he has not been on any diabetic medication for past few months and his blood sugar has been well controlled; we will start patient on Accu-Cheks every before meals and at bedtime with insulin sliding scale; we will make further recommendations pending results 3. Hypertension; start patient on hydralazine 10 mg IV every 6 hours when necessary for systolic blood pressure greater than 160; patient reports that his blood pressure has been adequately controlled and he does not take any medication; we will monitor closely and make recommendations for discharge 4. Morbid obesity; as above DVT prophylaxis; SCDs CODE STATUS; full code
== END 2020-07-05 12:14 | disposition home or self-care (01) | DRG 621 ==
LOC: 2ORMAIN 11:18 → 4SSUR 16:09
PROVIDERS: ADMIT Surgery; ATTEND Surgery
PROC: 0DB64Z3 Excision of Stomach, Percutaneous Endoscopic Approach, Vertical (ICD-10-PCS; principal; 2020-07-03 12:35)
DX: E66.01 Morbid (severe) obesity due to excess calories (principal); Z68.43 Body mass index [BMI] 50.0-59.9, adult; E11.9 Type 2 diabetes mellitus without complications; G47.30 Sleep apnea, unspecified; I10 Essential (primary) hypertension; K21.9 Gastro-esophageal reflux disease without esophagitis; K29.70 Gastritis, unspecified, without bleeding; R11.0 Nausea; Z79.84 Long term (current) use of oral hypoglycemic drugs; Z79.899 Other long term (current) drug therapy; Z87.891 Personal history of nicotine dependence; Z87.01 Personal history of pneumonia (recurrent); Z87.09 Personal history of other diseases of the respiratory system; Z87.828 Personal history of other (healed) physical injury and trauma; Z98.890 Other specified postprocedural states; Z99.89 Dependence on other enabling machines and devices
CPT/HCPCS: 74240; 80048; 80051; 82310; 82565; 83735; 84100; 84520; 85025; 88307; 94640; 94760; 94762

== ENCOUNTER → 2020-07-10 | Outpatient (CLI) | payer BC ==
[2020-07-10 10:28] VITALS: BP 132/77; PULSE 77; TEMP 98.2; BMI 45.6
--- NOTE | 2020-07-10 11:40 | P.BASOAP ---
Subjective Progress Note Date: 07/10/20 Principal diagnosis: Morbid obesity Patient returns 1 week post sleeve gastrectomy. Doing well. Adequate liquid and protein intake. No pain. No nausea or vomiting. Mild reflux. Objective - Vital Signs Vital signs: Vital Signs Temp 98.2 F 07/10/20 10:23 Pulse 77 07/10/20 10:23 Resp BP 132/77 07/10/20 10:23 Pulse Ox Intake & Output 07/09/20 07/10/20 07/10/20 18:59 06:59 18:59 Weight 170.097 kg - Exam Abdomen: Soft, nondistended, nontender, incisions clean and dry Assessment/Plan (1) Morbid obesity with BMI of 50.0-59.9, adult Narrative/Plan: Patient doing well at this time. Good weight loss so far. Tolerating adequate volume. Continue full liquids. Follow-up 2 weeks. Plan: Date: 07/10/20 Initial Weight: 188.468 kg Initial BMI: 50.5 Current Weight: 170.097 kg Current BMI: 45.6 Type of Surgery: Total Volume in Band: Previous Volume: Volume Removed: Volume Added: Band Size:
== END | disposition home or self-care (01) ==
LOC: BARWHC3 10:00
PROVIDERS: ATTEND Surgery
DX: Z48.815 Encounter for surgical aftercare following surgery on the digestive system (principal); E66.01 Morbid (severe) obesity due to excess calories; Z68.43 Body mass index [BMI] 50.0-59.9, adult; Z98.84 Bariatric surgery status
CPT/HCPCS: 99211

== ENCOUNTER → 2020-07-21 | Outpatient (CLI) | payer BC ==
[2020-07-21 15:39] VITALS: BP 125/84; PULSE 73; RESP 16; TEMP 98.1; BMI 44.9
--- NOTE | 2020-07-21 17:31 | P.BASOAP ---
Subjective Progress Note Date: 07/21/20 Principal diagnosis: Morbid obesity Patient doing well today. Excellent weight loss. Denies nausea or vomiting. He has been advancing his diet somewhat faster than average. No heartburn symptoms. Still on antiacids. He is 3 weeks out from sleeve gastrectomy. Objective - Vital Signs Vital signs: Vital Signs Temp 98.1 F 07/21/20 15:36 Pulse 73 07/21/20 15:36 Resp 16 07/21/20 15:36 BP 125/84 07/21/20 15:36 Pulse Ox Intake & Output 07/20/20 07/21/20 07/21/20 18:59 06:59 18:59 Weight 167.376 kg - Exam Abdomen: Soft, nontender, nondistended, incisions clean and dry Assessment/Plan (1) Morbid obesity with BMI of 50.0-59.9, adult Narrative/Plan: Overall patient doing quite well. Continue dietary and exercise regimen. Continue to monitor protein and liquid intake. Follow-up 1 month. Plan: Date: 07/21/20 Initial Weight: 188.468 kg Initial BMI: 50.5 Current Weight: 167.376 kg Current BMI: 44.9 Type of Surgery: Vertical Sleeve Gastrectomy Total Volume in Band: Previous Volume: Volume Removed: Volume Added: Band Size:
== END | disposition home or self-care (01) ==
LOC: BARWHC3 15:05
PROVIDERS: ATTEND Surgery
DX: E66.01 Morbid (severe) obesity due to excess calories (principal); Z68.41 Body mass index [BMI] 40.0-44.9, adult
CPT/HCPCS: 97803; 99211

== ENCOUNTER → 2020-08-25 | Outpatient (CLI) | payer BC ==
[2020-08-25 16:15] VITALS: BP 148/81; PULSE 65; RESP 16; TEMP 98; BMI 41.1
--- NOTE | 2020-08-25 16:42 | P.BASOAP ---
Subjective Progress Note Date: 08/25/20 Principal diagnosis: Morbid obesity Patient doing well. Sleeve 07/21. States he has lost approximately 70-80 pounds already. He has lost 30 pounds since his last visit. Denies reflux. No vomiting. Sleeping much better. Slight discomfort upper abdomen when bending over at the waist. Was not taking his vitamins yet. Thinks he may be a little bit behind on his fluid intake. Urine dark at times. He is due for labs. Objective - Vital Signs Vital signs: Vital Signs Temp 98 F 08/25/20 16:13 Pulse 65 08/25/20 16:13 Resp 16 08/25/20 16:13 BP 148/81 08/25/20 16:13 Pulse Ox Intake & Output 08/24/20 08/25/20 08/25/20 18:59 06:59 18:59 Weight 153.314 kg - Exam Abdomen: Soft, nontender, nondistended, incisions clean and dry Assessment/Plan (1) Morbid obesity with BMI of 50.0-59.9, adult Narrative/Plan: Patient overall doing well. Check one month labs. Follow up 4-6 weeks. Begin multivitamin daily. Will meet with dietitian today. Plan: Date: 08/25/20 Initial Weight: 188.468 kg Initial BMI: 50.5 Current Weight: 153.314 kg Current BMI: 41.1 Type of Surgery: Total Volume in Band: Previous Volume: Volume Removed: Volume Added: Band Size:
[2020-08-25 17:14] LABS: HCT 44.3 % (39.0-53.0); HGB 14.7 gm/dL (13.0-17.5); MCH 29.8 pg (25.0-35.0); MCHC 33.3 g/dL (31.0-37.0); MCV 89.7 fL (80.0-100.0); Platelet Count 155 k/uL (150-450); RBC 4.94 m/uL (4.30-5.90); RDW 13.4 % (11.5-15.5); WBC 5.8 k/uL (3.8-10.6)
[2020-08-26 04:40] LABS: African American GFR (CKD) 113.3 (60.0-200.0); Albumin 4.5 g/dL (3.80-4.90); Albumin/Globulin Ratio 1.73 (1.60-3.17); Anion Gap 10.2 mmol/L (4.00-12.00); Calcium 9.8 mg/dL (8.7-10.3); Carbon Dioxide 27.8 mmol/L (21.6-31.8); Globulin 2.6 g/dL (1.6-3.3); Non-African American GFR(CKD) 97.8 (60.0-200.0); Potassium 4.5 mmol/L (3.5-5.5); Total Protein 7.1 g/dL (6.2-8.2)
[2020-08-26 04:48] LABS: Folate, Serum 8.5 ng/mL
== END | disposition home or self-care (01) ==
LOC: BARWHC3 15:36
PROVIDERS: ATTEND Surgery
DX: E66.01 Morbid (severe) obesity due to excess calories (principal); K90.89 Other intestinal malabsorption; E55.9 Vitamin D deficiency, unspecified; Z71.3 Dietary counseling and surveillance; Z68.43 Body mass index [BMI] 50.0-59.9, adult
CPT/HCPCS: 80053; 82306; 82607; 82746; 83540; 84425; 85027; 97803; 99211

== ENCOUNTER → 2020-10-06 | Outpatient (CLI) | payer BC ==
--- NOTE | 2020-10-07 16:21 | PN ---
PROGRESS NOTE BARIATRIC PROGRESS NOTE: DATE OF SERVICE: 10/06/2020 CHIEF COMPLAINT: Morbid obesity. INTERVAL HISTORY: This is a 35-year-old male who underwent sleeve gastrectomy on 07/03. Doing well. He has lost 28 pounds in the last 6 weeks. Denies heartburn. No vomiting. Recently he had a torn biceps, left arm. He is still taking his antacids daily. Labs from July showed a slightly low iron. He is taking supplemental iron. On physical exam, his abdomen is soft, non-tender, non-distended. IMPRESSION/PLAN: [id number] male doing well after sleeve gastrectomy. Unfortunately he tore his left biceps, which is limiting his activity somewhat. Continue dietary and exercise regimen. Patient will start taking his antacids every other day. Will plan on rechecking his labs next visit. Follow up in 4 to 6 weeks. MMODL / IJN: [id number] /
== END | disposition home or self-care (01) ==
CPT/HCPCS: 97803; 99211

== ENCOUNTER → 2020-11-10 | Outpatient (CLI) | payer BC ==
--- NOTE | 2020-11-10 16:18 | P.BASOAP ---
Subjective Progress Note Date: 11/10/20 Principal diagnosis: Morbid obesity Patient returns for recheck. Was last seen 1 month ago. He has lost 14 pounds since that time. Still taking antacids every other day. Notices rare episodes of nausea when he drinks too soon after his meals. Usually the nausea last for half a minute to 2 minutes duration. No vomiting. No pain. Activity remains elevated. Good energy level. Objective - Exam Abdomen: Soft, nontender, nondistended Assessment/Plan (1) Morbid obesity with BMI of 50.0-59.9, adult Narrative/Plan: Patient overall doing well. Continue dietary and exercise regimen. Check 3 months labs. Follow-up 6 weeks. Continue antiacids every other day. Plan: Date: Initial Weight: 188.468 kg Initial BMI: Current Weight: Current BMI: Type of Surgery: Total Volume in Band: Previous Volume: Volume Removed: Volume Added: Band Size:
[2020-11-10 16:20] VITALS: BP 145/78; PULSE 69; RESP 16; TEMP 97.9; BMI 36.0
[2020-11-10 16:57] LABS: HCT 43.9 % (39.0-53.0); MCH 29.8 pg (25.0-35.0); MCHC 34.3 g/dL (31.0-37.0); Mean Platelet Volume 7.5; Platelet Count 206 k/uL (150-450); RBC 5.05 m/uL (4.30-5.90); RDW 12.4 % (11.5-15.5); WBC 7.5 k/uL (3.8-10.6)
[2020-11-11 01:19] LABS: Hemoglobin A1C 4.6 % (4.0-6.0)
[2020-11-11 05:43] LABS: African American GFR (CKD) 135.1 (60.0-200.0); Albumin 4.7 g/dL (3.80-4.90); Albumin/Globulin Ratio 2.04 (1.60-3.17); Anion Gap 11.7 mmol/L (4.00-12.00); BUN/Creat Ratio 18.75 Ratio (12.00-20.00); Calcium 9.4 mg/dL (8.7-10.3); Carbon Dioxide 25.3 mmol/L (21.6-31.8); Globulin 2.3 g/dL (1.6-3.3); Non-African American GFR(CKD) 116.6 (60.0-200.0); Potassium 3.9 mmol/L (3.5-5.5); Total Bilirubin 0.7 mg/dL (0.3-1.2)
[2020-11-11 05:53] LABS: Folate, Serum 8.7 ng/mL
== END | disposition home or self-care (01) ==
LOC: BARWHC3 15:48
PROVIDERS: ATTEND Surgery
DX: E66.01 Morbid (severe) obesity due to excess calories (principal); Z68.43 Body mass index [BMI] 50.0-59.9, adult
CPT/HCPCS: 80053; 82306; 82607; 82746; 83036; 83540; 84425; 85027; 99211